=== PATIENT | male | born 1985 | race Caucasian/White ===

== ENCOUNTER 2017-01-30 10:02 | Observation (INO) | payer BC, OTHER ==
[~2017-01-30 10:02] MED LIST: Bacitracin Oint 28.35 GM Tube TOP ONE; Bupivacaine 0.25%/EPINEPHrine 1:200,000 10 ML SDV INJECT ONE; Bupivacaine 0.25%/EPINEPHrine 1:200,000 10 ML SDV ONE; Clindamycin Phosphate in D5W 600 MG in Premix Bag 1 BAG IV ONE
[2017-01-30] MEDS ORDERED: fentaNYL 250 MCG/5 ML SDV ONE (10:28)
[2017-01-30] MEDS ORDERED: Lidocaine 2% 5 ML SDV ONE (10:28)
[2017-01-30] MEDS ORDERED: Midazolam 1 MG/ML 2 ML SDV ONE (10:28)
[2017-01-30] MEDS ORDERED: Propofol 200 MG/20 ML SDV ONE ×3 (10:28→14:39)
[2017-01-30] MEDS ORDERED: fentaNYL 100 MCG/2 ML SDV ONE ×2 (10:28→14:31)
[2017-01-30] MEDS ORDERED: Ondansetron 4 MG/2 ML SDV ONE (10:29)
[2017-01-30] MEDS ORDERED: HYDROmorphone 2 MG/ML Syringe ONE (10:30)
[2017-01-30] MEDS ORDERED: Neostigmine Methylsulfate 1 MG/ML 5 ML Syringe ONE (10:36)
[2017-01-30] MEDS ORDERED: Rocuronium 10 MG/ML 10 ML Syringe ONE (10:36)
[2017-01-30] MEDS ORDERED: Lactated Ringers 1,000 ML IV SCH (11:00)
--- NOTE | 2017-01-30 11:11 | PCM.PREANE ---
Preanesthetic Assessment - Anesthesia/Transfusion/Family Hx Anesthesia History: No Prior Anesthesia Family History of Anesthesia Reaction: No Transfusion History: No Prior Transfusion(s) Intubation History: Unknown - Review of Systems General: No Symptoms Pulmonary: No Symptoms Cardiovascular: No Symptoms Gastrointestinal: No symptoms Neurological: No Symptoms Other: Reports: None - Physical Assessment O2 Sat by Pulse Oximetry: 96 Respiratory Rate: 18 Vital Signs: Last Vital Signs Temp 36.2 C 01/30/17 10:49 Pulse 83 01/30/17 10:49 Resp 18 01/30/17 10:49 BP 139/93 H 01/30/17 10:53 Pulse Ox 96 01/30/17 10:49 Height: 1.88 m Weight: 130.181 kg ASA Class: 2 Mental Status: Alert & Oriented x3 Airway Class: Mallampati = 3 Dentition: Reports: Normal Dentition Thyro-Mental Finger Breadths: 3 Mouth Opening Finger Breadths: 2 ROM/Head Extension: Limited/Partial Lungs: Clear to auscultation, Normal respiratory effort Cardiovascular: Regular Rate, Regular Rhythm - Allergies Allergies/Adverse Reactions: Allergies Allergy/AdvReac Type Severity Reaction Status Date / Time No Known Allergies Allergy Verified 09/22/16 22:41 - Blood Blood Available: No - Anesthesia Plan Pre-Op Medication Ordered: None - Acknowledgements Anesthesia Type Planned: General Anesthesia Pt an Appropriate Candidate for the Planned Anesthesia: Yes Alternatives and Risks of Anesthesia Discussed w Pt/Guardian: Yes Pt/Guardian Understands and Agrees with Anesthesia Plan: Yes PreAnesthesia Questionnaire Musculoskeletal History: Reports: Fracture Other Musculoskeletal History: hx fx thumb and ankle Endocrine/Metabolic History: Reports: Obesity/BMI 30+ Dermatologic History: Reports: Other (See Below) Other Dermatologic History: hidradenitis supurativa, acne, pilonidal cyst - Past Surgical History Head Surgeries/Procedures: Reports: None - SUBSTANCE USE Smoking Status *Q: Current Every Day Smoker (1 ppd) Recreational Drug Use History: No - HOME MEDS Home Medications: Home Meds Minocycline [Minocin] 100 mg PO BID 09/22/16 [History] - CURRENT (IN HOUSE) MEDS Current Meds: Current Medications Hydrocodone Bitart/Acetaminophen ([place] 325-5 Mg) 2 tab PO Q4H PRN PRN Reason: Pain Lactated Ringer's (Ringers, Lactated) 1,000 mls @ 125 mls/hr IV ASDIRECTED [facility]JI Last Admin: 01/30/17 10:47 Dose: 125 mls/hr Discontinued Medications Bacitracin (Bacitracin Oint) 50 gm TOP ONETIME ONE Stop: 01/30/17 08:01 Bupivacaine HCl/Epinephrine Bitart ([place] 0.25%/Epinephrine 1:200,000) 30 ml INJECT ONETIME ONE Stop: 01/30/17 08:01 Bupivacaine HCl/Epinephrine Bitart ([place] 0.25%/Epinephrine 1:200,000) Confirm Administered Dose 40 ml .ROUTE .STK-MED ONE Stop: 01/30/17 07:27 Fentanyl (Sublimaze) Confirm Administered Dose 100 mcg .ROUTE .STK-MED ONE Stop: 01/30/17 10:29 Fentanyl (Sublimaze) Confirm Administered Dose 250 mcg .ROUTE .STK-MED ONE Stop: 01/30/17 10:29 Glycopyrrolate () Confirm Administered Dose 1 mg .ROUTE .STK-MED ONE Stop: 01/30/17 10:37 Hydromorphone HCl (Dilaudid) Confirm Administered Dose 2 mg .ROUTE .STK-MED ONE Stop: 01/30/17 10:31 Clindamycin Phosphate 600 mg/ (Premix) 50 mls @ 150 mls/hr IV ONETIME ONE Stop: 01/30/17 08:19 Last Admin: 01/30/17 10:48 Dose: 150 mls/hr Lidocaine (Xylocaine-Mpf 2%) Confirm Administered Dose 10 ml .ROUTE .STK-MED ONE Stop: 01/30/17 10:29 Midazolam HCl (Versed 1 Mg/Ml) Confirm Administered Dose 2 mg .ROUTE .STK-MED ONE Stop: 01/30/17 10:29 Neostigmine Methylsulfate (Neostigmine) Confirm Administered Dose 5 mg .ROUTE .STK-MED ONE Stop: 01/30/17 10:37 Ondansetron HCl (Zofran) Confirm Administered Dose 8 mg .ROUTE .STK-MED ONE Stop: 01/30/17 10:30 Propofol (Diprivan 20 Ml) Confirm Administered Dose 400 mg .ROUTE .STK-MED ONE Stop: 01/30/17 10:29 Propofol (Diprivan 20 Ml) Confirm Administered Dose 400 mg .ROUTE .STK-MED ONE Stop: 01/30/17 10:30 Rocuronium [place] (Zemuron) Confirm Administered Dose 100 mg .ROUTE .[facility]-MED ONE Stop: 01/30/17 10:37
[2017-01-30] MEDS ORDERED: Methylene Blue 50 MG/10 ML Ampule IV ONE (11:58)
[2017-01-30] MEDS ORDERED: ePHEDrine 50 MG/ML SDV ONE (13:03)
[2017-01-30] MEDS ORDERED: Bupivacaine 0.25%/EPINEPHrine 1:200,000 10 ML SDV ONE (14:30)
[2017-01-30] MEDS ORDERED: fentaNYL 100 MCG/2 ML SDV IVPUSH PRN (16:47)
--- NOTE | 2017-01-30 16:51 | PCM.OPNOTE ---
- General Post-Op/Procedure Note Date of Surgery/Procedure: 01/30/17 Operative Procedure(s): excision of pilonidal cyst on tailbone, excision of bilateral groin and bilateral axillary hidradenitis Pre Op Diagnosis: hidradenitis and pilonidal cyst Post-Op Diagnosis: Same Anesthesia Technique: General ET tube, Local Primary Surgeon: Kaye Rondon Employee Adviser: Alyssa Armendariz Complications: None Condition: Good Free Text/Narrative:: Intake & Output 01/30/17 01/30/17 01/30/17 07:59 15:59 23:59 Output Total 250 Balance -250
[2017-01-30] MEDS ORDERED: Morphine 2 MG/ML Syringe IVPUSH PRN (17:30)
[2017-01-30] MEDS ORDERED: diphenhydrAMINE 25 MG Cap PO PRN (17:30)
[2017-01-30] MEDS ORDERED: Ondansetron 4 MG/2 ML SDV IVPUSH PRN (17:30)
--- NOTE | 2017-01-30 18:10 | PCM.POSTAN ---
POST ANESTHESIA ASSESSMENT - MENTAL STATUS Mental Status: alert, oriented - RESPIRATORY Respiratory Status: respiratory rate WNL, airway patent, O2 saturation stable - CARDIOVASCULAR CV Status: pulse rate WNL, blood pressure stable - GASTROINTESTINAL GI Status: no symptoms - PAIN Pain Score: 5 (Pt does not want pain meds) - POST OP HYDRATION Hydration Status: adequate & stable - OBSERVATIONS Free Text/Narrative:: Tx to floor for phase II and discharge since after hours in [facility].
--- NOTE | 2017-01-30 18:11 | PCM48HPAN ---
Post Anesthesia Note - EVALUATION WITHIN 48HRS OF ANESTHETIC Vital Signs in Normal Range: Yes Patient Participated in Evaluation: Yes Respiratory Function Stable: Yes Airway Patent: Yes Cardiovascular Function Stable: Yes Hydration Status Stable: Yes Pain Control Satisfactory: Yes Nausea and Vomiting Control Satisfactory: Yes Mental Status Recovered: Yes
[2017-01-30] MEDS: Acetaminophen/HYDROcodone 325-5 MG Tab PO PRN ×2 (18:16→22:31)
[2017-01-31] MEDS: Acetaminophen/HYDROcodone 325-5 MG Tab PO PRN ×4 (05:37→22:37)
--- NOTE | 2017-01-31 08:31 | PCM.PN ---
- General Info Date of Service: 01/31/17 Admission Dx/Problem (Free Text): s/p excision of pilonidal cyst, bilateral axilla and groin hidradenitis. POD 1 still with increased pain. Subjective Update: still needing pain medication iv for control Functional Status: Reports: pain controlled - Review of Systems General: Reports: No Symptoms HEENT: Reports: no symptoms Pulmonary: Reports: no symptoms Musculoskeletal: Reports: no symptoms Skin: Denies: bruising, rash Neurological: Reports: Paresthesia (of the left medial and lateral lower leg. No foot involvement. no sharp borders - more indescript. No weakness - just numbness that began and increased last night. No symptoms after surgery initially. Likely positioning. ) Psychiatric: Reports: anxiety - Patient Data Vitals - most recent: Last Vital Signs Temp 98.4 F 01/31/17 03:43 Pulse 102 H 01/31/17 03:43 Resp 22 H 01/31/17 03:43 BP 123/63 01/31/17 03:43 Pulse Ox 94 L 01/31/17 03:43 Weight - most recent: 287 lb I&O - last 24 hours: Intake & Output 01/30/17 01/31/17 01/31/17 23:59 07:59 15:59 Intake Total 3650 850 Output Total 250 600 Balance 3400 250 Med Orders - Current: Current Medications Hydrocodone Bitart/Acetaminophen ([place] 325-5 Mg) 2 tab PO Q4H PRN PRN Reason: Pain Last Admin: 01/31/17 05:37 Dose: 2 tab Diphenhydramine HCl (Benadryl) 25 mg PO Q6H PRN PRN Reason: Itching Fentanyl (Sublimaze) 50 mcg IVPUSH Q5M PRN PRN Reason: Pain (severe 7-10) Stop: 01/31/17 16:47 Morphine Sulfate (Morphine) 2 mg IVPUSH Q2H PRN PRN Reason: Pain Ondansetron HCl (Zofran) 4 mg IVPUSH Q6H PRN PRN Reason: Nausea/Vomiting Discontinued Medications Bacitracin (Bacitracin Oint) 50 gm TOP ONETIME ONE Stop: 01/30/17 08:01 Bupivacaine HCl/Epinephrine Bitart ([place] 0.25%/Epinephrine 1:200,000) 30 ml INJECT ONETIME ONE Stop: 01/30/17 08:01 Bupivacaine HCl/Epinephrine Bitart ([place] 0.25%/Epinephrine 1:200,000) Confirm Administered Dose 40 ml .ROUTE .ST-MED ONE Stop: 01/30/17 07:27 Bupivacaine HCl/Epinephrine Bitart ([place] 0.25%/Epinephrine 1:200,000) Confirm Administered Dose 30 ml .ROUTE .ST-MED ONE Stop: 01/30/17 14:31 Ephedrine Sulfate (Ephedrine Sulfate) Confirm Administered Dose 100 mg .ROUTE .ST-MED ONE Stop: 01/30/17 13:04 Fentanyl (Sublimaze) Confirm Administered Dose 100 mcg .ROUTE .ST-MED ONE Stop: 01/30/17 10:29 Fentanyl (Sublimaze) Confirm Administered Dose 250 mcg .ROUTE .ST-MED ONE Stop: 01/30/17 10:29 Fentanyl (Sublimaze) Confirm Administered Dose 100 mcg .ROUTE .ST-MED ONE Stop: 01/30/17 14:32 Glycopyrrolate () Confirm Administered Dose 1 mg .ROUTE .ST-MED ONE Stop: 01/30/17 10:37 Hydromorphone HCl (Dilaudid) Confirm Administered Dose 2 mg .ROUTE .ST-MED ONE Stop: 01/30/17 10:31 Clindamycin Phosphate 600 mg/ (Premix) 50 mls @ 150 mls/hr IV ONETIME ONE Stop: 01/30/17 08:19 Last Admin: 01/30/17 10:48 Dose: 150 mls/hr Lactated Ringer's (Ringers, Lactated) 1,000 mls @ 125 mls/hr IV ASDIRECTED [facility] Last Admin: 01/30/17 10:47 Dose: 125 mls/hr Lidocaine (Xylocaine-Mpf 2%) Confirm Administered Dose 10 ml .ROUTE .ST-MED ONE Stop: 01/30/17 10:29 Methylene Blue (Provayblue) Confirm Administered Dose 50 mg IV .ST-MED ONE Stop: 01/30/17 11:59 Midazolam HCl (Versed 1 Mg/Ml) Confirm Administered Dose 2 mg .ROUTE .STK-MED ONE Stop: 01/30/17 10:29 Neostigmine Methylsulfate (Neostigmine) Confirm Administered Dose 5 mg .ROUTE .STK-MED ONE Stop: 01/30/17 10:37 Ondansetron HCl (Zofran) Confirm Administered Dose 8 mg .ROUTE .STK-MED ONE Stop: 01/30/17 10:30 Propofol (Diprivan 20 Ml) Confirm Administered Dose 400 mg .ROUTE .STK-MED ONE Stop: 01/30/17 10:29 Propofol (Diprivan 20 Ml) Confirm Administered Dose 400 mg .ROUTE .STK-MED ONE Stop: 01/30/17 10:30 Propofol (Diprivan 20 Ml) Confirm Administered Dose 600 mg .ROUTE .STK-MED ONE Stop: 01/30/17 14:40 Rocuronium [place] (Zemuron) Confirm Administered Dose 100 mg .ROUTE .STK-MED ONE Stop: 01/30/17 10:37 - Exam General: alert, oriented, cooperative HEENT: EOMI Lungs: Normal respiratory effort Extremities: no edema, normal pulses, no tenderness/swelling, no calf tenderness Skin: warm, dry Wound/Incisions: healing well, dressing dry and intact, drainage (minimal on abd 's. No signs of hematoma or seroma formation. ) Neurological: sensation intact (describes parasthesias on the left lower leg, foot uninvolved. Sensation intact to groin and upper legs. ). No: no new focal deficit Psy/Mental Status: alert, normal affect, normal mood - Problem List & Annotations (1) Hidradenitis suppurativa SNOMED Code(s): 81054807 Code(s): L73.2 - HIDRADENITIS SUPPURATIVA Status: Chronic Priority: High Current Visit: Yes (2) Pilonidal cyst with abscess SNOMED Code(s): 46434135 Code(s): L05.01 - PILONIDAL CYST WITH ABSCESS Status: Chronic Priority: High Current Visit: Yes - Problem List Review Problem List Initiated/Reviewed/Updated: Yes - My Orders Last 24 Hours: My Active Orders 01/30/17 08:00 Acetaminophen/HYDROcodone [[place] 325-5 MG] 2 tab PO Q4H PRN 01/30/17 09:00 Verify Patient Consent Obtain [RC] ASDIRECTED 01/30/17 17:30 Occlusive Dressing [Wound Care] [RC] Q12H Morphine 2 mg IVPUSH Q2H PRN Ondansetron [Zofran] 4 mg IVPUSH Q6H PRN diphenhydrAMINE [Benadryl] 25 mg PO Q6H PRN 01/30/17 21:27 Convert IV to Saline Lock [OM.PC] Routine - Plan Plan:: continue close observation and IV pain control - change to observation status. norco for pain as well shower today ambulatory - walking at least tid and pas boots while in bed. will not opt for medical prophylaxis given the bleeding risk.
[2017-02-01] MEDS: Acetaminophen/HYDROcodone 325-5 MG Tab PO PRN ×3 (04:06→13:30)
[2017-02-01 12:04] VITALS: BP 129/89
--- NOTE | 2017-02-01 13:56 | PCM.PN ---
- General Info Date of Service: 02/01/17 Admission Dx/Problem (Free Text): s/p excision of pilonidal cyst, bilateral axilla and groin hidradenitis. POD 2. Not using IV medications. Using just oral medications. Functional Status: Reports: pain controlled, tolerating diet, ambulating ( nervously. ) - Review of Systems General: Reports: No Symptoms - Patient Data Vitals - most recent: Last Vital Signs Temp 98.1 F 02/01/17 12:15 Pulse 97 02/01/17 12:15 Resp 20 02/01/17 12:15 BP 129/89 02/01/17 12:15 Pulse Ox 94 L 02/01/17 12:15 Weight - most recent: 287 lb I&O - last 24 hours: Intake & Output 01/31/17 02/01/17 02/01/17 23:59 07:59 15:59 Intake Total 600 700 Output Total 700 750 Balance -100 -50 Med Orders - Current: Current Medications Hydrocodone Bitart/Acetaminophen ([place] 325-5 Mg) 2 tab PO Q4H PRN PRN Reason: Pain Last Admin: 02/01/17 13:30 Dose: 2 tab Diphenhydramine HCl (Benadryl) 25 mg PO Q6H PRN PRN Reason: Itching Morphine Sulfate (Morphine) 2 mg IVPUSH Q2H PRN PRN Reason: Pain Last Admin: 01/31/17 10:14 Dose: 2 mg Ondansetron HCl (Zofran) 4 mg IVPUSH Q6H PRN PRN Reason: Nausea/Vomiting Discontinued Medications Bacitracin (Bacitracin Oint) 50 gm TOP ONETIME ONE Stop: 01/30/17 08:01 Last Admin: 01/31/17 12:22 Dose: Not Given Bupivacaine HCl/Epinephrine Bitart ([place] 0.25%/Epinephrine 1:200,000) 30 ml INJECT ONETIME ONE Stop: 01/30/17 08:01 Last Admin: 01/31/17 12:22 Dose: Not Given Bupivacaine HCl/Epinephrine Bitart ([place] 0.25%/Epinephrine 1:200,000) Confirm Administered Dose 40 ml .ROUTE .STK-MED ONE Stop: 01/30/17 07:27 Bupivacaine HCl/Epinephrine Bitart ([place] 0.25%/Epinephrine 1:200,000) Confirm Administered Dose 30 ml .ROUTE .STK-MED ONE Stop: 01/30/17 14:31 Ephedrine Sulfate (Ephedrine Sulfate) Confirm Administered Dose 100 mg .ROUTE .STK-MED ONE Stop: 01/30/17 13:04 Fentanyl (Sublimaze) Confirm Administered Dose 100 mcg .ROUTE .STK-MED ONE Stop: 01/30/17 10:29 Fentanyl (Sublimaze) Confirm Administered Dose 250 mcg .ROUTE .STK-MED ONE Stop: 01/30/17 10:29 Fentanyl (Sublimaze) Confirm Administered Dose 100 mcg .ROUTE .STK-MED ONE Stop: 01/30/17 14:32 Fentanyl (Sublimaze) 50 mcg IVPUSH Q5M PRN PRN Reason: Pain (severe 7-10) Stop: 01/31/17 16:47 Glycopyrrolate () Confirm Administered Dose 1 mg .ROUTE .STK-MED ONE Stop: 01/30/17 10:37 Hydromorphone HCl (Dilaudid) Confirm Administered Dose 2 mg .ROUTE .STK-MED ONE Stop: 01/30/17 10:31 Clindamycin Phosphate 600 mg/ (Premix) 50 mls @ 150 mls/hr IV ONETIME ONE Stop: 01/30/17 08:19 Last Admin: 01/30/17 10:48 Dose: 150 mls/hr Lactated Ringer's (Ringers, Lactated) 1,000 mls @ 125 mls/hr IV ASDIRECTED [facility]I Last Admin: 01/30/17 10:47 Dose: 125 mls/hr Lidocaine (Xylocaine-Mpf 2%) Confirm Administered Dose 10 ml .ROUTE .STK-MED ONE Stop: 01/30/17 10:29 Methylene Blue (Provayblue) Confirm Administered Dose 50 mg IV .STK-MED ONE Stop: 01/30/17 11:59 Midazolam HCl (Versed 1 Mg/Ml) Confirm Administered Dose 2 mg .ROUTE .STK-MED ONE Stop: 01/30/17 10:29 Neostigmine Methylsulfate (Neostigmine) Confirm Administered Dose 5 mg .ROUTE .STK-MED ONE Stop: 01/30/17 10:37 Ondansetron HCl (Zofran) Confirm Administered Dose 8 mg .ROUTE .STK-MED ONE Stop: 01/30/17 10:30 Propofol (Diprivan 20 Ml) Confirm Administered Dose 400 mg .ROUTE .STK-MED ONE Stop: 01/30/17 10:29 Propofol (Diprivan 20 Ml) Confirm Administered Dose 400 mg .ROUTE .STK-MED ONE Stop: 01/30/17 10:30 Propofol (Diprivan 20 Ml) Confirm Administered Dose 600 mg .ROUTE .STK-MED ONE Stop: 01/30/17 14:40 Rocuronium [place] (Zemuron) Confirm Administered Dose 100 mg .ROUTE .STK-MED ONE Stop: 01/30/17 10:37 - Exam General: alert, oriented, cooperative Lungs: Normal respiratory effort Back Exam: Normal Inspection Skin: warm, dry Wound/Incisions: healing well, drainage (minimal drainage. healing well. ) Psy/Mental Status: alert, normal affect, normal mood - Problem List & Annotations (1) Hidradenitis suppurativa SNOMED Code(s): 14989870 Code(s): L73.2 - HIDRADENITIS SUPPURATIVA Status: Chronic Priority: High Current Visit: Yes (2) Pilonidal cyst with abscess SNOMED Code(s): 37559448 Code(s): L05.01 - PILONIDAL CYST WITH ABSCESS Status: Chronic Priority: High Current Visit: Yes - Problem List Review Problem List Initiated/Reviewed/Updated: Yes - Plan Plan:: continue pain control - norco shower daily and wound cares instructed ambulatory - walking at least tid
--- NOTE | 2017-02-06 17:23 | OR ---
SURGEON: JENN NEWMAN MD DATE OF PROCEDURE: 01/30/2017 PREOPERATIVE DIAGNOSES: 1. Bilateral axillary and groin hidradenitis. 2. Sacral pilonidal cyst. POSTOPERATIVE DIAGNOSES: SAME Procedure: 1. Excision of complicated pilonidal cyst with abscess 2. Excision of bilateral groin hidradenitis 3. Excision of bilateral axillary hidradenitis MIXER ATTENDANT: JERROD Nichols. INDICATIONS: Mr. Cabrera is a 31-year-old gentleman with bilateral groin and axillary hidradenitis. Risks and benefits of the excision were discussed with him and he was in agreement to proceed. Risks were including, but not limited to, bleeding, infection, damage to underlying or overlying structures, possible need for future interventions and possible scarring. PROCEDURE IN DETAIL: After informed consent was obtained and placed on the chart, the patient was brought to the operating theater and laid in the prone position, after adequate general anesthetic was obtained. Appropriate padding was obtained and preoperative antibiotics were given. Attention was then paid to time-out to confirm side and site, and the area was prepped and draped in normal fashion using a Betadine cleansing solution. Once adequately prepped and draped, attention was then paid to time-out to confirm side and site. Attention was then paid to dissection around the pilonidal cyst in the sacral area. Methylene blue was instilled into the cystic pocket in order to better visualize the borders. Dissection was carried 1st through the skin and then through the subcutaneous tissues using Bovie electrocautery and with cautery also allowed hemostasis. Dissection was carried just on the up side of the cyst itself, but in the healthy tissue to ensure complete excision without any leakage of material. The Methylene blue worked quite well in this patient to elucidate the tract. There were multiple tracts and this was a complicated abscess in the pilonidal cyst. This was excised en bloc without spillage of any of the cyst material or any of the abscess material into the pocket. Once adequately excised and removed en bloc, the area was copiously irrigated and meticulous hemostasis was obtained. A layered closure was then undertaken using deep 2-0 PDS sutures for the deep layers and the fascia closure and after a moderate amount of undermining, the skin was then closed using deep 3-0 Monocryl stitches and a 3-0 Prolene in a horizontal mattress fashion. This was dressed with Xeroform, fluffs, and tape and the patient was then transferred into the supine position and attention was then paid to the bilateral groins and bilateral axilla. The groins were much more extensive, we involved and anticipated and this was anesthetized with local anesthetic and an ellipse was made into the groin area to excise as much as possible and still be able to close the tissue. Once adequately excised, the area was meticulously hemostasis, copiously irrigated, and a moderate amount of undermining and rearranging of the tissue was accomplished to obtain closure. The skin was then closed using deep 2-0 PDS sutures for the fascial area and this helps to take tension off the skin. The skin was then closed with 3-0 Monocryl stitches and a bursts of running horizontal mattress with a 3-0 Prolene. This was then dressed with Xeroform, ABDs, and mesh panties. Attention was then paid to bilateral axilla which were prepped in the normal fashion using Betadine cleansing solution. A 15 blade was then used to dissect through the markings on the skin to take out as much of the infected tissue as possible complex cyst and abscesses underneath this. Meticulous hemostasis was obtained, then using Bovie electrocautery after removal of the skin. After hemostasis, the wounds were then closed using deep 2-0 PDS sutures and interrupted 3-0 Monocryl for the deep dermis, and 3-0 Prolene in an interrupted horizontal mattress fashion for the armpit. The patient tolerated this well bilaterally, and the wounds were dressed with Xeroform, fluffs, and tape. The patient tolerated the procedure well. All counts of needles were correct at the end of the case and 0.25% Marcaine with epinephrine was injected into the area for hemostasis and pain control. HEGGTHE / MODL /[id number]
== END 2017-02-01 14:45 | disposition home or self-care (01) ==
LOC: MW.SDS 10:02 → MW.MS 16:51
PROVIDERS: ADMIT Plastic Surgery; ATTEND Plastic Surgery
PROC: 0JB90ZZ Excision of Buttock Subcutaneous Tissue and Fascia, Open Approach (ICD-10-PCS; principal; 2017-01-30)
PROC: 0JBF0ZZ Excision of Left Upper Arm Subcutaneous Tissue and Fascia, Open Approach (ICD-10-PCS; 2017-01-30)
PROC: 0JBD0ZZ Excision of Right Upper Arm Subcutaneous Tissue and Fascia, Open Approach (ICD-10-PCS; 2017-01-30)
PROC: 0JBC0ZZ Excision of Pelvic Region Subcutaneous Tissue and Fascia, Open Approach (ICD-10-PCS; 2017-01-30)
DX: L05.91 Pilonidal cyst without abscess (principal); L73.2 Hidradenitis suppurativa; E66.01 Morbid (severe) obesity due to excess calories; F17.210 Nicotine dependence, cigarettes, uncomplicated; Z79.2 Long term (current) use of antibiotics; Z68.36 Body mass index [BMI] 36.0-36.9, adult
CPT/HCPCS: 11450; 11462; 11771; 88304; 88305; 96374; A9270; G0378; J1170; J2250; J2270; J2405; J3010; J7120; Q9968; 00300; J2704

== ENCOUNTER 2017-02-03 18:15 | Emergency (ER) | payer BC ==
[2017-02-03] MEDS ORDERED: Sodium Chloride 0.9% 1,000 ML IV ONE (18:30)
[2017-02-03] MEDS ORDERED: Ondansetron 4 MG/2 ML SDV IVPUSH ONE (18:30)
[2017-02-03] MEDS ORDERED: fentaNYL 100 MCG/2 ML SDV IVPUSH ONE (18:30)
--- NOTE | 2017-02-03 18:30 | EDM.PDOC ---
ED HPI GENERAL MEDICAL PROBLEM - General Chief Complaint: Fever Stated Complaint: FEVER Time Seen by Provider: 02/03/17 18:20 Source of Information: Reports: Patient History Limitations: Reports: No Limitations - History of Present Illness INITIAL COMMENTS - FREE TEXT/NARRATIVE: History of present illness: [31-year-old male presenting status post surgery for hidradenitis supportiva. Patient has suture lines in bilateral axillary regions in the groin in the back. ] Review of systems: As per history of present illness and below otherwise all systems reviewed and negative. Past medical history: As per history of present illness and as reviewed below otherwise noncontributory. Surgical history: As per history of present illness and as reviewed below otherwise noncontributory. Social history: No reported history of drug or alcohol abuse. Family history: As per history of present illness and as reviewed below otherwise noncontributory. Physical exam: HEENT: Atraumatic, normocephalic, pupils reactive, negative for conjunctival pallor or scleral icterus, mucous membranes moist, throat clear, neck supple, nontender, trachea midline. Lungs: Clear to auscultation, breath sounds equal bilaterally, chest nontender. Heart: S1S2, regular, negative for clicks, rubs, or JVD. Abdomen: Soft, nondistended, nontender. Negative for masses or hepatosplenomegaly. Negative for costovertebral tenderness. Pelvis: Stable nontender. Genitourinary: Deferred. Rectal: Deferred. Extremities: Atraumatic, negative for cords or calf pain. Neurovascular unremarkable. Neuro: Awake, alert, oriented. Cranial nerves II through XII unremarkable. Cerebellum unremarkable. Motor and sensory unremarkable throughout. Exam nonfocal. Patient is afebrile here lactic acid is 1.6 blood cultures pending Diagnostics: [CBC, CMP] Therapeutics: [Normal saline, fentanyl, Zofran] Impression: [Wound check] Plan: [Followup with Dr. Rondon as planned] Definitive disposition and diagnosis as appropriate pending reevaluation and review of above. Generalized Pain Score (Numeric/FACES): 10 - Related Data Allergies Allergy/AdvReac Type Severity Reaction Status Date / Time No Known Allergies Allergy Verified 09/22/16 22:41 Home Meds: Home Meds Minocycline [Minocin] 100 mg PO BID 09/22/16 [History] Acetaminophen/HYDROcodone [[place] 325-5 MG] 2 tab PO Q4H PRN #40 tablet 02/01/17 [Rx] Past Medical History Musculoskeletal History: Reports: Fracture Other Musculoskeletal History: hx fx thumb and ankle Endocrine/Metabolic History: Reports: Obesity/BMI 30+ Dermatologic History: Reports: Other (See Below) Other Dermatologic History: hidradenitis supurativa, acne, pilonidal cyst - Past Surgical History Head Surgeries/Procedures: Reports: None Social & Family History - Family History Family Medical History: Noncontributory - Tobacco Use Smoking Status *Q: Current Every Day Smoker Years of Tobacco use: 15 Packs/Tins Daily: 1 Used Tobacco, but Quit: No Second Hand Smoke Exposure: Yes - Recreational Drug Use Recreational Drug Use: No ED ROS GENERAL - Review of Systems Review Of Systems: See Below (The history of present illness) ED EXAM, GENERAL - Physical Exam Exam: See Below (See history of present illness) Course - Vital Signs Last Recorded V/S: Last Vital Signs Temp 36.7 C 02/03/17 18:19 Pulse 116 H 02/03/17 18:53 Resp 18 02/03/17 18:53 BP 134/79 02/03/17 18:53 Pulse Ox 97 02/03/17 18:53 - Orders/Labs/Meds Orders: Active Orders 24 hr Category Date Time Status CULTURE BLOOD [BC] Stat Lab 02/03/17 18:50 Received CULTURE BLOOD [BC] Stat Lab 02/03/17 18:58 Received Blood Culture x2 Reflex Set [OM.PC] Stat Oth 02/03/17 18:32 Ordered Labs: Laboratory Tests 02/03/17 02/03/17 02/03/17 Range/Units 18:36 18:36 19:25 WBC 11.98 H (4.0-11.0) K/uL RBC 5.35 (4.50-5.90) M/uL Hgb 16.5 (13.0-17.0) g/dL Hct 47.4 (38.0-50.0) % MCV 88.6 (80.0-98.0) fL MCH 30.8 (27.0-32.0) pg MCHC 34.8 (31.0-37.0) g/dL RDW Std Deviation 42.7 (28.0-62.0) fl RDW Coeff of [place] 13 (11.0-15.0) % Plt Count 244 (150-400) K/uL MPV 10.80 (7.40-12.00) fL Add Manual Diff YES Neutrophils % (Manual) 75 (48.0-80.0) % Band Neutrophils % 2 % Lymphocytes % (Manual) 6 L (16.0-40.0) % Monocytes % (Manual) 14 (0.0-15.0) % Eosinophils % (Manual) 2 (0.0-7.0) % Basophils % (Manual) 1 (0.0-1.5) % Nucleated RBC % 0.0 /100WBC Absolute Seg Neuts 9.0 Band Neutrophils # 0.2 Lymphocytes # (Manual) 0.7 Monocytes # (Manual) 1.7 Eosinophils # (Manual) 0.2 Basophils # (Manual) 0 Nucleated RBCs # 0 K/uL Lactate 1.6 (0.20-2.00) mmol/L Sodium 133 L (136-146) mmol/L Potassium 4.6 (3.5-5.1) mmol/L Chloride 99 (98-110) mmol/L Carbon Dioxide 22 (21-31) mmol/L BUN 16 (6.0-23.0) mg/dL Creatinine 1.1 (0.6-1.5) mg/dL Est Cr Clr Drug Dosing 116.29 mL/min Estimated GFR (MDRD) > 60.0 ml/min Glucose 107 (60-110) mg/dL Calcium 8.5 L (8.8-10.8) mg/dL Total Bilirubin 0.7 (0.1-1.5) mg/dL AST 29 (5-40) IU/L ALT 31 (8-54) IU/L Alkaline Phosphatase 84 (40-150) Total Protein 7.2 (6.0-8.0) g/dL Albumin 3.4 L (3.5-5.0) g/dL Globulin 3.8 H (2.0-3.5) g/dL Albumin/Globulin Ratio 0.9 L (1.3-2.8) Meds: Medications Discontinued Medications Generic Name Dose Route Start Last Admin Trade Name Freq PRN Reason Stop Dose Admin Fentanyl 50 mcg 02/03/17 18:30 02/03/17 18:44 Sublimaze IVPUSH 02/03/17 18:31 50 mcg ONETIME ONE Administration Sodium Chloride 1,000 mls @ 999 mls/hr 02/03/17 18:30 02/03/17 18:40 Normal Saline IV 02/03/17 19:30 999 mls/hr STAT ONE Administration Ondansetron HCl 8 mg 02/03/17 18:30 02/03/17 18:46 Zofran IVPUSH 02/03/17 18:31 8 mg ONETIME ONE Administration Departure - Departure Time of Disposition: 20:02 Disposition: Home, Self-Care 01 Condition: good Clinical Impression: Encounter for post surgical wound check - Discharge Information Forms: ED Department Discharge Additional Instructions: The following information is given to patients seen in the emergency department who are being discharged to home. This information is to outline your options for follow-up care. We provide all patients seen in our emergency department with a follow-up referral. The need for follow-up, as well as the timing and circumstances, are variable depending upon the specifics of your emergency department visit. If you don't have a primary care physician on staff, we will provide you with a referral. We always advise you to contact your personal physician following an emergency department visit to inform them of the circumstance of the visit and for follow-up with them and/or the need for any referrals to a consulting specialist. The emergency department will also refer you to a specialist when appropriate. This referral assures that you have the opportunity for follow-up care with a specialist. All of these measure are taken in an effort to provide you with optimal care, which includes your follow-up. Under all circumstances we always encourage you to contact your private physician who remains a resource for coordinating your care. When calling for follow-up care, please make the office aware that this follow-up is from your recent emergency room visit. If for any reason you are refused follow-up, please contact the [facility] Emergency Department at and asked to speak to the emergency department charge nurse. Your labs were within normal limits not showing a sign of sepsis or active infection Followup with Dr. Berry as planned as discussed Return ED as needed as discussed - My Orders Last 24 Hours: My Active Orders 02/03/17 18:32 Blood Culture x2 Reflex Set [OM.PC] Stat 02/03/17 18:50 CULTURE BLOOD [BC] Stat 02/03/17 18:58 CULTURE BLOOD [BC] Stat - Assessment/Plan Last 24 Hours: My Active Orders 02/03/17 18:32 Blood Culture x2 Reflex Set [OM.PC] Stat 02/03/17 18:50 CULTURE BLOOD [BC] Stat 02/03/17 18:58 CULTURE BLOOD [BC] Stat
[2017-02-03 19:54] LABS: CHLORIDE,CL 99 mmol/L (98-110); SODIUM,NA 133 mmol/L (136-146)
[2017-02-03 20:31] VITALS: BP 118/65
== END 2017-02-03 20:23 | disposition home or self-care (01) ==
LOC: MW.ED 18:15
DX: Z48.817 Encounter for surgical aftercare following surgery on the skin and subcutaneous tissue (principal); F17.210 Nicotine dependence, cigarettes, uncomplicated; E66.9 Obesity, unspecified; Z68.35 Body mass index [BMI] 35.0-35.9, adult
CPT/HCPCS: 36415; 80053; 83605; 85025; 87040; 96361; 96374; 96375; 99283; J2405; J3010; J7040